=== PATIENT | male | born 1990 | race American Indian/Alaskan Native ===

== ENCOUNTER 2017-12-20 00:11 | Emergency (ER) | payer SELFPAY ==
[2017-12-20 00:11] VITALS: BMI 32.1
[2017-12-20 00:32] VITALS: TEMP 97.6
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
[2017-12-20] MEDS ORDERED: Bacitracin 500 Units/gm Oint Foilpak UD TOP ONE (00:36)
[2017-12-20] MEDS ORDERED: Bacitracin 500 Units/gm Oint Foilpak UD ONE (00:39)
[2017-12-20] MEDS ORDERED: Tdap Vaccine 0.5 ml Vial (10-64 yrs) IM ONE ×2 (00:42→00:49)
[2017-12-20] MEDS ORDERED: Oxycodone/Acetaminophen 5/325 mg Tab PO STA (01:49)
[2017-12-20] MEDS ORDERED: Oxycodone/Acetaminophen 5/325 mg Tab ONE (02:02)
[2017-12-20 02:42] VITALS: BP 118/71; PULSE 80; RESP 14
[2017-12-20 04:32] VITALS: O2SAT 97
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
== END 2017-12-20 02:42 | disposition home or self-care (01) ==
LOC: C.ER 00:11
DX: S02.31XA Fracture of orbital floor, right side, initial encounter for closed fracture (principal); S61.411A Laceration without foreign body of right hand, initial encounter; S80.212A Abrasion, left knee, initial encounter; Y04.0XXA Assault by unarmed brawl or fight, initial encounter